=== PATIENT | female | born 1965 | race Caucasian/White ===

== ENCOUNTER 2023-02-16 05:49 | Day surgery (SDC) | payer OTHER ==
[~2023-02-16] VITALS: Ht 157.5 cm; Wt 68.2 kg
[~2023-02-16 05:49] MED LIST: ATOR20TA PO; CELE200 PO; CEPH-558 PO; DICL2100G TP; ERGO500093 PO; FOLI-130 PO; HYDR200T76 PO; KETOROLAC TROMETHAMINE 0.5% 5 ML OPHTHALMIC SOLUTION ONE; MOXIFLOXACIN HCL 0.5% 3 ML OPHTHALMIC SOLUTION ONE; OMEP20 PO; PHENYLEPHRINE HCL 2.5% 2 ML OPHTHALMIC SOLUTION ONE; PROP10DR15 OU; RINGERS SOLUTION,LACTATED 500 ML IV ONE; TROPICAMIDE 1% 2 ML OPHTHALMIC SOLUTION ONE
[2023-02-16] MEDS ORDERED: RINGERS SOLUTION,LACTATED 500 ML IV ONE ×2 (06:00→08:33)
[2023-02-16] MEDS: KETOROLAC TROMETHAMINE 0.5% 5 ML OPHTHALMIC SOLUTION OD SCH ×3 (06:57→07:09)
[2023-02-16] MEDS: PHENYLEPHRINE HCL 2.5% 2 ML OPHTHALMIC SOLUTION OD SCH ×3 (06:58→07:08)
[2023-02-16] MEDS: MOXIFLOXACIN HCL 0.5% 3 ML OPHTHALMIC SOLUTION OD SCH ×3 (06:58→07:09)
[2023-02-16] MEDS: TROPICAMIDE 1% 2 ML OPHTHALMIC SOLUTION OD SCH ×3 (06:58→07:09)
[2023-02-16] MEDS ORDERED: MIDAZOLAM HCL 2 MG/2 ML VIAL IVP ONE (12:00)
[2023-02-16] MEDS ORDERED: FentaNYL CITRATE PF 100 MCG/2 ML VIAL IVP ONE (12:00)
== END 2023-02-16 11:10 | disposition home or self-care (01) ==
LOC: SURGERY 05:49
PROVIDERS: ATTEND Ophthalmology
DX: H25.11 Age-related nuclear cataract, right eye (principal); Z79.899 Other long term (current) drug therapy; Z88.0 Allergy status to penicillin; Z90.49 Acquired absence of other specified parts of digestive tract; Z98.890 Other specified postprocedural states; J45.909 Unspecified asthma, uncomplicated
CPT/HCPCS: 93005; 66984; J3010; J2250; J7120; V2632